=== PATIENT | male | born 1985 | race Caucasian/White ===

== ENCOUNTER 2017-08-26 18:44 | Emergency (ER) | payer BC, SELFPAY ==
[2017-08-26] MEDS ORDERED: Ibuprofen 800 MG TAB ONE (19:02)
[2017-08-26 19:03] LABS: Bilirubin Negative (Negative); Blood, Urine Negative (Negative); Clarity CLEAR (Clear); Glucose, Urine (Dipstick) Negative (Negative); Leukocyte Negative (Negative); Nitrite Negative (Negative); Protein, Urine (Dipstick) Negative (Neg-Trace); Specific Gravity, Urine 1.009 (1.002-1.036); Urobilinogen 0.2 mg/dL (0.2-1.0)
--- NOTE | 2017-08-26 21:06 | ULT ---
SCROTAL ULTRASOUND: Date: 08-26-17 Comparison: None. History: 31-year-old male with testicular pain. Technique: Multiplanar grayscale sonographic imaging of the scrotal contents with doppler interrogati on of the testicles including color flow and spectral analysis. FINDINGS: Right testicle measures 4.3 x 1.8 x 2.8 cm and left testicle measures 4.5 x 2.0 x 3.2 cm. There is no rmal symmetric blood flow within the testicles. No intraarticular mass identified. Right epididymal head measures 1.0 x 0.9 cm and left epididymal head measures 1.0 x 0.7 cm. There is a 7 mm right epididymal head cyst. No significant hydrocele is seen on either side. There is a small left sided vericocele noted. IMPRESSION: Small left vericocele. Study is otherwise unremarkable. POS: [facility]
== END 2017-08-26 20:47 | disposition home or self-care (01) ==
LOC: ERS 18:44
DX: N50.811 Right testicular pain (principal); F41.9 Anxiety disorder, unspecified; L40.9 Psoriasis, unspecified
CPT/HCPCS: 76870; 81003; 93976